=== PATIENT | female | born 1980 | race African-American/Black ===

== ENCOUNTER 2016-10-22 17:57 | Emergency (ER) | payer SELFPAY ==
[~2016-10-22] VITALS: Ht 160 cm; Wt 77.1 kg
[~2016-10-22 17:57] MED LIST: DOXYCYCLINE MO100 MG ORAL; TRAMADOL HCL50 MG ORAL
[2016-10-22 18:09] VITALS: BP 119/81
[2016-10-22] MEDS ORDERED: Albuterol ud Inhalation HHN ONE (18:15)
[2016-10-22] MEDS ORDERED: Ipratropium 0.02% Inh Soln 2.5ml UD HHN ONE (18:15)
[2016-10-22] MEDS ORDERED: LORazepam 0.5mg tab ORAL ONE (18:45)
[2016-10-22] MEDS ORDERED: ATIVAN0.5 MG ORAL (19:24)
[2016-10-22 19:32] VITALS: BP 121/84
[2016-10-22 19:33] VITALS: BP 121/84
--- NOTE | 2016-10-23 17:45 | Emergency Room Report ---
History of Present Illness General Chief Complaint: General Complaint Source: Patient Present Illness HPI The pt is a 36 yo F presenting for SOB and a feeling of lightheadedness which began last night before going to sleep. The pt does admit that she has been experiencing increased stress over the past week due to family situation. The pt denies any medical history and denies any cardiac family Hx. Pt denies CP, cough, wheezing, F, Chills, abd pain, dizziness, blurred vision, diaphoresis, numbness/tingling. Allergies: Coded Allergies: NO KNOWN ALLERGIES (Unverified Allergy, Unknown, 09/12/15) Patient History Past Medical History: see triage record Pertinent Family History: none Last Menstrual Period: 10/17/16 Now: No Reviewed Nursing Documentation: PMH: Agreed, PSxH: Agreed Nursing Documentation-PMH Past Medical History: No Stated History Review of Systems All Other Systems: negative except mentioned in HPI Physical Exam Vital Signs Date Time Temp Pulse Resp B/P Pulse Ox O2 Delivery O2 Flow Rate FiO2 10/22/16 18:02 98.6 84 14 119/81 100 Room Air Sp02 EP Interpretation: reviewed, normal General Appearance: no apparent distress, alert, GCS 15, non-toxic Head: normocephalic, atraumatic Eyes: bilateral eye PERRL, bilateral eye normal inspection ENT: hearing grossly normal, normal pharynx, no angioedema, normal voice Respiratory: chest non-tender, lungs clear, normal breath sounds, speaking full sentences Cardiovascular #1: regular rate, rhythm, no edema Gastrointestinal: normal bowel sounds, non tender, soft, non-distended, no guarding, no rebound Rectal: deferred Genitourinary: normal inspection, no CVA tenderness Neurologic: alert, oriented x3, responsive, motor strength/tone normal, sensory intact, normal gait, speech normal Psychiatric: judgement/insight normal, memory normal, mood/affect normal, no suicidal/homicidal ideation Skin: normal color, no rash, warm/dry, well hydrated Lymphatic: no adenopathy Medical Decision Making PA Attestation Dr. Gallegos is my supervising physician. Patient management was discussed with my supervising physician Diagnostic Impression: Primary Impression: Anxiety ER Course The pt is a 36 yo F presenting for SOB and a feeling of lightheadedness which began last night before going to sleep. DDx: anxiety, ACS, bronchitis, PNA PE: vitals WNL. NAD. Lungs CTA bilat. RRR. EKG unremarkable. The pt is given a breathing treatment as she states she is unable to take a deep breath. Pt feels better. The pt is given a low dose of ativan. Pt will be DC'ed home with a limited prescription for for ativan and will FU with PMD. Pt agrees that seeing psychiatrist may help. EKG Diagnostic Results EP Interpretation: No acute findings Rate: normal Rhythm: NSR ST Segments: no acute changes ASA given to the pt in ED: No PA Scribe Text EKG reviewed with my SP. No acute changes seen. NSR. Normal rate. No ST changes. Last Vital Signs Date Time Temp Pulse Resp B/P Pulse Ox O2 Delivery O2 Flow Rate FiO2 10/22/16 19:33 98.5 87 19 121/84 98 Room Air Disposition: HOME, SELF-CARE Condition: Improved Scripts Lorazepam* (ATIVAN*) 0.5 Mg Tablet 0.5 MG ORAL THREE TIMES A DAY, #15 TAB Prov: ADRIAN KIRBY 10/22/16 Patient Instructions: Panic Attacks Additional Instructions: I discussed my findings with the patient. All questions and concerns have been answered. Treatment and medication compliance have been addressed. I advised the patient that they need to follow up with PMD in 3-5 days. Return to ED if symptoms worsen, new symptoms arise, or if needed for any reason. Patient verbalized understanding of discharge instructions. ADRIAN KIRBY Oct 23, 2016 17:45
== END 2016-10-22 20:04 | disposition home or self-care (01) ==
LOC: EMR 18:57
DX: F41.9 Anxiety disorder, unspecified (principal)
CPT/HCPCS: 94640; 94664; 99283